=== PATIENT | male | born 1945 | race Caucasian/White ===

== ENCOUNTER → 2019-12-23 | Outpatient (CLI) | payer OTHER | END | disposition home or self-care (01) | LOC: CVU 08:43 | PROVIDERS: ATTEND Orthopaedic Surgery | DX: I37.1 Nonrheumatic pulmonary valve insufficiency (principal); I11.9 Hypertensive heart disease without heart failure; I25.9 Chronic ischemic heart disease, unspecified | CPT/HCPCS: 93306; 93356 ==